=== PATIENT | female | born 1950 | race Caucasian/White ===

== ENCOUNTER → 2017-05-04 | Outpatient (CLI) | payer MEDICARE ==
[~2017-05-04] MED LIST: MOBIC15 MG PO; NOHOMEMEDICATIONS
[2017-05-04 11:11] LABS: CREATININE 0.7 mg/dL (0.6-1.3)
== END ==
LOC: M.LAB 10:15 → M.CT 10:36
PROVIDERS: Family Medicine
DX: J18.9 Pneumonia, unspecified organism (principal); K76.0 Fatty (change of) liver, not elsewhere classified; N28.1 Cyst of kidney, acquired

== ENCOUNTER → 2017-05-12 | Outpatient (CLI) | payer MEDICARE | LOC: M.LAB 12:20 → EDSTATUS 16:27 | DX: E27.9 Disorder of adrenal gland, unspecified (principal) ==

== ENCOUNTER → 2017-05-16 | Outpatient (CLI) | payer MEDICARE ==
[2017-05-16 07:21] LABS: ABSOLUTE BASOPHILS 0.1 thou/uL (0.0-0.2); ABSOLUTE EOSINOPHILS 0.2 thou/uL (0.0-0.7); ABSOLUTE LYMPHOCYTES 3.2 thou/uL (0.8-5.3); ABSOLUTE MONOCYTES 0.7 thou/uL (0.0-1.2); ABSOLUTE NEUTROPHILS 5.3 thou/uL (1.6-8.1); BASOPHILS 0.7 %; EOSINOPHILS 2.3 %; HEMATOCRIT 40.8 % (37.0-47.0); HEMOGLOBIN 13.4 gm/dL (12.0-15.0); LYMPHOCYTES 33.7 %; MCH 30.7 pg (26.0-34.0); MCV 93.2 fL (80.0-100.0); MONOCYTES 7.6 %; MPV 8.2 fl. (7.2-11.1); NUCLEATED RBCS 0 /100WBC; PLATELET COUNT* 273 thou/uL (150-400); POLYS 55.7 %; RBC 4.38 mil/uL (4.20-5.00); RDW-CV 13.1 % (10.5-14.5); WBC 9.5 thou/uL (4.0-11.0)
[2017-05-16 07:45] LABS: ALBUMIN 3.4 g/dL (3.4-5.0); CALCIUM 8.9 mg/dL (8.5-10.1); CREATININE 0.8 mg/dL (0.6-1.3); POTASSIUM 4.2 mmol/L (3.5-5.1); TOTAL BILIRUBIN 0.3 mg/dL (<0.1-1.0); TOTAL PROTEIN 7.9 g/dL (6.4-8.2)
[2017-05-19 18:06] LABS: METANEPHRINE-PL 13 pg/mL (0-62); NORMETANEPHRINE - PL 54 pg/mL (0-145)
[2017-05-20 07:48] LABS: URINE DOPAMINE 48 ug/L (Undefined); URINE EPINEPHRINE < 1 ug/L (Undefined); URINE NOREPINEPHRINE 12 ug/L (Undefined)
== END ==
LOC: M.MRI 06:52
PROVIDERS: Urology
DX: E27.9 Disorder of adrenal gland, unspecified (principal)

== ENCOUNTER 2017-12-30 18:31 | Emergency (ER) | payer OTHER ==
[~2017-12-30] VITALS: Ht 162.6 cm; Wt 85.3 kg
[2017-12-30 19:12] LABS: ABSOLUTE BASOPHILS 0.1 thou/uL (0.0-0.2); ABSOLUTE EOSINOPHILS 0.2 thou/uL (0.0-0.7); ABSOLUTE LYMPHOCYTES 4.3 thou/uL (0.8-5.3); ABSOLUTE MONOCYTES 0.7 thou/uL (0.0-1.2); ABSOLUTE NEUTROPHILS 5.3 thou/uL (1.6-8.1); EOSINOPHILS 1.9 %; HEMATOCRIT 38.4 % (37.0-47.0); HEMOGLOBIN 12.6 gm/dL (12.0-15.0); LYMPHOCYTES 40.3 %; MCH 30.6 pg (26.0-34.0); MCHC 32.7 g/dL (28.0-37.0); MCV 93.6 fL (80.0-100.0); MONOCYTES 6.5 %; MPV 8.1 fl. (7.2-11.1); NUCLEATED RBCS 0 /100WBC; PLATELET COUNT* 318 thou/uL (150-400); POLYS 50.3 %; RBC 4.11 mil/uL (4.20-5.00); RDW-CV 13.2 % (10.5-14.5); WBC 10.6 thou/uL (4.0-11.0)
[2017-12-30 19:20] LABS: ANION GAP 8 mmol/L (7-16); BUN 13 mg/dL (7-18); CALCIUM 9.1 mg/dL (8.5-10.1); CHLORIDE 103 mmol/L (98-107); CO2 30 mmol/L (21-32); CREATININE 0.8 mg/dL (0.6-1.3); GLUCOSE 144 mg/dL (70-99); POTASSIUM 3.5 mmol/L (3.5-5.1); SODIUM 141 mmol/L (136-145)
[2017-12-30 19:23] LABS: URINE BILIRUBIN NEGATIVE (Negative); URINE BLOOD 1+ (Negative); URINE CLARITY CLEAR; URINE COLOR YELLOW; URINE GLUCOSE-RANDOM NEGATIVE (Negative); URINE KETONES NEGATIVE (Negative); URINE LEUKOCYTES-REFLEX NEGATIVE (Negative); URINE NITRITE-REFLEX NEGATIVE (Negative); URINE PROTEIN NEGATIVE (Negative); URINE SPECIFIC GRAVITY >= 1.030 (1.005-1.030); URINE UROBILINOGEN 0.2 E.U./dl (0.2-1.0)
[2017-12-30 19:31] LABS: ALBUMIN 3.3 g/dL (3.4-5.0); ALKALINE PHOSPHATASE 110 U/L (46-116); LIPASE 184 U/L (73-393); NT-PRO BRAIN NAT PEPTIDE 103 pg/mL (<300); SGOT 29 U/L (15-37); SGPT 44 U/L (30-65); TOTAL BILIRUBIN 0.2 mg/dL (<0.1-1.0); TOTAL PROTEIN 7.4 g/dL (6.4-8.2); TROPONIN-I LEVEL <0.06 ng/mL (<0.06)
[2017-12-30 19:58] LABS: CASTS None Seen /LPF (None Seen); CRYSTALS None Seen /LPF (None Seen); MUCUS 0-3 Light strn/LPF (None Seen); SQUAMOUS 4-10 Moderate /LPF (0-3); URINE RBC 0-2 Rare /HPF (0-2); URINE WBC-REFLEX 0-5 Rare /HPF (0-5)
[2017-12-30 19:59] LABS: BACTERIA-REFLEX None Seen /HPF (None Seen)
[2017-12-30 20:25] VITALS: BP 149/72
--- NOTE | 2017-12-31 10:24 | EKG ---
[place] [address] ELECTROCARDIOGRAM REPORT Name: EDIN BROWN Room: [facility]#: [id number] Admission: 12/30/17 Attend Phys: Discharge: 12/30/17 Date of : 50 Report #: [id number] THIS REPORT FOR: //name// [facility] ED Test Date: 2017-12-30 Test Time: 18:40:00 Pat Name: EDIN BROWN Department: Room: Gender: F Etymology Professor: Keny HUGO : 1950 Requested By: Yanely Avilez Order Number: [id number] MD: Jerardo Lim Measurements Intervals [place] Rate: 93 P: 80 AR: 152 QRS: 73 QRSD: 80 T: 76 QT: 362 QTc: 451 Interpretive Statements Sinus rhythm Atrial premature complexes No previous ECG available for comparison Electronically Signed On 12-31-2017 10:23:56 FLOORING INSTALLER by Jerardo Lim [email or web address] <ELECTRONICALLY SIGNED> By: Jerardo Lim MD, [facility] 12/31/17 1023 1840 1840 Jerardo Lim MD, FACC /EPI
== END 2017-12-30 20:28 | disposition home or self-care (01) ==
LOC: M.ERS 18:31
PROVIDERS: Nurse Practitioner Family
DX: I10 Essential (primary) hypertension (principal); R07.9 Chest pain, unspecified

== ENCOUNTER 2018-03-06 20:33 | Emergency (ER) | payer OTHER ==
[~2018-03-06] VITALS: Ht 162.6 cm; Wt 84.8 kg
[2018-03-06] MEDS ORDERED: HYDROCHLOROTHIA25 M2 PO (20:50)
[2018-03-06 21:17] LABS: HEMATOCRIT 39.3 % (37.0-47.0); HEMOGLOBIN 13.2 gm/dL (12.0-15.0); MCH 30.9 pg (26.0-34.0); MCHC 33.5 g/dL (28.0-37.0); MCV 92.3 fL (80.0-100.0); RBC 4.26 mil/uL (4.20-5.00); RDW-CV 12.7 % (10.5-14.5); WBC 11.4 thou/uL (4.0-11.0)
[2018-03-06 21:18] LABS: ABSOLUTE BASOPHILS 0.1 thou/uL (0.0-0.2); ABSOLUTE EOSINOPHILS 0.1 thou/uL (0.0-0.7); ABSOLUTE LYMPHOCYTES 4.4 thou/uL (0.8-5.3); ABSOLUTE MONOCYTES 0.8 thou/uL (0.0-1.2); ABSOLUTE NEUTROPHILS 5.9 thou/uL (1.6-8.1); BASOPHILS 1.1 %; EOSINOPHILS 1.1 %; LYMPHOCYTES 38.9 %; MONOCYTES 7.3 %; MPV 8.1 fl. (7.2-11.1); NUCLEATED RBCS 0 /100WBC; PLATELET COUNT* 306 thou/uL (150-400); POLYS 51.6 %
[2018-03-06 21:25] LABS: ANION GAP 8 mmol/L (7-16); BUN 17 mg/dL (7-18); CHLORIDE 97 mmol/L (98-107); CO2 32 mmol/L (21-32); CREATININE 1.1 mg/dL (0.6-1.3); GLUCOSE 154 mg/dL (70-99); POTASSIUM 3.6 mmol/L (3.5-5.1); SODIUM 137 mmol/L (136-145)
[2018-03-06 21:32] LABS: ALBUMIN 3.4 g/dL (3.4-5.0); ALKALINE PHOSPHATASE 105 U/L (46-116); MAGNESIUM 1.6 mg/dL (1.8-2.4); SGOT 28 U/L (15-37); SGPT 36 U/L (30-65); TOTAL BILIRUBIN 0.2 mg/dL (<0.1-1.0); TOTAL PROTEIN 7.8 g/dL (6.4-8.2); TROPONIN-I LEVEL <0.06 ng/mL (<0.06)
[2018-03-06] MEDS ORDERED: ATIVAN0.5 M1 PO (22:15)
[2018-03-06 22:31] VITALS: BP 130/59
--- NOTE | 2018-03-07 18:05 | EKG ---
[place] [address] ELECTROCARDIOGRAM REPORT Name: EDIN BROWN Room: [facility]#: [id number] Admission: 03/06/18 Attend Phys: Discharge: 03/06/18 Date of : 50 Report #: [id number] THIS REPORT FOR: //name// [facility] ED Test Date: 2018-03-06 Test Time: 21:13:24 Pat Name: EDIN BROWN Department: Room: Gender: F Cloth Layer: Keny MADISON : 1950 Requested By: Eduarda Santana Order Number: [id number] MD: Jerardo Lim Measurements Intervals [place] Rate: 95 P: 79 MA: 155 QRS: 57 QRSD: 82 T: 76 QT: 366 QTc: 460 Interpretive Statements Sinus rhythm RSR' in V1 or V2, probably normal variant Compared to ECG 12/30/2017 18:40:00 RSR' in V1 or V2 now present Atrial premature complex(es) no longer present Electronically Signed On 03-07-2018 18:05:25 MELTER ASSISTANT by Jerardo Lim [email or web address] <ELECTRONICALLY SIGNED> By: Jerardo Lim MD, FACC 03/07/18 1805 12 12 Jerardo Lim MD, FAC /EPI
== END 2018-03-06 22:34 | disposition home or self-care (01) ==
LOC: M.ERS 20:33
PROVIDERS: Personal Emergency Response Attendant
DX: I10 Essential (primary) hypertension (principal); F41.9 Anxiety disorder, unspecified; Z87.891 Personal history of nicotine dependence; Z88.1 Allergy status to other antibiotic agents